=== PATIENT | female | born 1945 | race Caucasian/White ===

== ENCOUNTER 2016-04-17 11:04 | Emergency (ER) | payer OTHER ==
[~2016-04-17] VITALS: Ht 157.5 cm; Wt 68.0 kg
[2016-04-17 11:14] VITALS: BP 114/81; PULSE 90; RESP 16; TEMP 96.8; O2SAT 94
--- NOTE | 2016-04-17 11:23 | NUR ---
Patient to ER bed 2 to gown for evaluation. Side rails up. Report given to Jesús ALEXANDER.
--- NOTE | 2016-04-17 11:38 | NUR ---
Pt states that she "feels sick", possible UTI. Feels like she has been sick with "one thing or another' since hernia surgery in November. Denies n/v. Irregular bowels.
[2016-04-17 11:40] LABS: BILIRUBIN,URINE NEGATIVE (NEGATIVE); BLOOD, URINE NEGATIVE (NEGATIVE); CLARITY/URINE CLEAR (CLEAR); COLOR,URINE YELLOW (YELLOW); GLUCOSE,URINE NEGATIVE (NEGATIVE); KETONES,URINE NEGATIVE (NEGATIVE); LEUKOCYTE ESTERASE ,URINE NEGATIVE (NEGATIVE); NITRITE, URINE POSITIVE (NEGATIVE); PROTEIN URINE NEGATIVE (NEGATIVE); UROBILINOGEN,URINE 0.2 (0.2-1.0)
--- NOTE | 2016-04-17 11:49 | NUR ---
Dr. Webber at bedside for evaluation
--- NOTE | 2016-04-17 11:55 | NUR ---
Phleb at bedside for blood draw using 2 pt identifiers.
[2016-04-17] MEDS ORDERED: PIPERACILLIN/TAZO 3.38 GM in NS 50 ML IV ONE (12:00)
[2016-04-17 12:06] LABS: BASOPHILS % (AUTO) 0.2 % (0.0-2.0); HEMATOCRIT 43.7 % (36-48); HEMOGLOBIN 14.7 g/dL (12.0-16.0); LYMPHOCYTES # (AUTO) 2.1 K/uL (1.0-5.5); LYMPHOCYTES % (AUTO) 26.9 % (20.5-51.5); MEAN CORPUSCULAR HEMOGLOBIN 31 pg (27-31); MEAN CORPUSCULAR HGB CONC 34 % (32-36); MEAN CORPUSCULAR VOLUME 92 fL (79.0-98.0); MONOCYTES # (AUTO) 0.5 K/uL (0.0-1.0); MONOCYTES % (AUTO) 6.7 % (1.7-9.3); NEUTROPHILS # (AUTO) 5.4 K/uL (1.8-7.7); NEUTROPHILS % (AUTO) 66.2 % (40.0-70.0); PLATELET COUNT (AUTO) 246 K/uL (130-430); RED BLOOD CELL COUNT(AUTO) 4.74 MIL/uL (4.2-6.2); RED CELL DISTRIBUTION WIDTH 12.8 % (9.0-15.0)
[2016-04-17 12:15] LABS: ANION GAP 6 (5-15); CALCIUM 8.5 mg/dL (8.4-11.0); CHLORIDE 105 mmol/L (98-107); CREATININE 0.58 mg/dL (0.55-1.30); GLUCOSE 127 mg/dL (70-99); POTASSIUM 3.8 mmol/L (3.5-5.1); SODIUM SERUM 137 mmol/L (136-145); UREA NITROGEN, BLOOD 7 mg/dL (8-21)
[2016-04-17 12:18] LABS: PROTHROMBIN TIME 10.5 SECS (9.5-12.5)
[2016-04-17 12:19] LABS: ALANINE AMINOTRANSFERASE 29 U/L (12-78); ALBUMIN 3.4 g/dL (3.4-4.8); ASPARTATE AMINOTRANSFERASE 15 U/L (10-37); LIPASE 188 U/L (73-393); TOTAL BILIRUBIN 0.4 mg/dL (0.0-1.0); TOTAL PROTEIN, SERUM 6.9 g/dL (6.4-8.3)
--- NOTE | 2016-04-17 12:30 | NUR ---
Off unit for CT via [facility]
--- NOTE | 2016-04-17 13:38 | NUR ---
Note olgaemiliano in EDM - 04/17/16 at 1348 by SDEDST[facility] Pt states that she "feels sick", possible UTI. Feels like she has been sick with "one thing or another' since hernia surgery in November. Denies n/v. Irregular bowels.
[2016-04-17] MEDS ORDERED: MAGNESIUM CITRATE 300 ML ORAL SOLUTION PO ONE (13:45)
[2016-04-17] MEDS ORDERED: LEVOFLOXACIN 500 MG TABLET PO ONE (13:45)
--- NOTE | 2016-04-17 13:47 | NUR ---
Dr. Webber at bedside speaking with pt regarding ED results and follow up.
[2016-04-17 14:00] VITALS: BP 151/76; PULSE 75; RESP 16; TEMP 97; O2SAT 98
--- NOTE | 2016-04-17 14:00 | NUR ---
Patient given written and verbal discharge instructions and verbalizes understanding. ER MD discussed with patient the results and treatment provided. Given copies of tests performed in ER. Patient in stable condition. ID arm band removed. Rx of pyridium, cipro given. Patient educated on pain management and to follow up with PMD. Pain Scale 1/10. Opportunity for questions provided and answered.
== END 2016-04-17 14:00 | disposition home or self-care (01) ==
LOC: SED 11:04
DX: R53.1 Weakness (principal); R30.0 Dysuria; I10 Essential (primary) hypertension
CPT/HCPCS: 36415; 71010; 80053; 81003; 83605; 83690-TC; 85025; 85610-TC; 87040-TC; 93005; 99285

== ENCOUNTER 2016-08-17 10:36 | Emergency (ER) | payer OTHER ==
[~2016-08-17] VITALS: Ht 157.5 cm; Wt 68.5 kg
[2016-08-17 10:40] VITALS: BP_SYST 120
[2016-08-17] MEDS ORDERED: PIPERACILLIN/TAZO 3.38 GM in NS 50 ML IV ONE (12:15)
[2016-08-17] MEDS ORDERED: PIPERACILLIN/TAZOBACTAM 3.375 GM/VIAL (ZOSYN) IV ONE (12:34)
[2016-08-17 12:56] LABS: BILIRUBIN,URINE NEGATIVE (NEGATIVE); BLOOD, URINE NEGATIVE (NEGATIVE); CLARITY/URINE CLEAR (CLEAR); COLOR,URINE YELLOW (YELLOW); GLUCOSE,URINE NEGATIVE (NEGATIVE); KETONES,URINE NEGATIVE (NEGATIVE); LEUKOCYTE ESTERASE ,URINE NEGATIVE (NEGATIVE); NITRITE, URINE NEGATIVE (NEGATIVE); PROTEIN URINE NEGATIVE (NEGATIVE); UROBILINOGEN,URINE 0.2 (0.2-1.0)
[2016-08-17 13:04] LABS: HEMATOCRIT 44.1 % (36-48); HEMOGLOBIN 14.7 g/dL (12.0-16.0); LYMPHOCYTES % (AUTO) 34.2 % (20.5-51.5); MEAN CORPUSCULAR HEMOGLOBIN 31 pg (27-31); MEAN CORPUSCULAR HGB CONC 33 % (32-36); MEAN CORPUSCULAR VOLUME 93 fL (79.0-98.0); MONOCYTES # (AUTO) 0.4 K/uL (0.0-1.0); MONOCYTES % (AUTO) 6.9 % (1.7-9.3); NEUTROPHILS # (AUTO) 3.5 K/uL (1.8-7.7); NEUTROPHILS % (AUTO) 58.9 % (40.0-70.0); PLATELET COUNT (AUTO) 246 K/uL (130-430); RED BLOOD CELL COUNT(AUTO) 4.74 MIL/uL (4.2-6.2); RED CELL DISTRIBUTION WIDTH 12.8 % (9.0-15.0); WHITE BLOOD COUNT (AUTO) 5.9 K/uL (4.8-10.8)
[2016-08-17 13:06] LABS: ANION GAP 7 (5-15); CALCIUM 8.6 mg/dL (8.4-11.0); CHLORIDE 102 mmol/L (98-107); CREATININE 0.55 mg/dL (0.55-1.30); GLUCOSE 165 mg/dL (70-99); POTASSIUM 3.6 mmol/L (3.5-5.1); SODIUM SERUM 134 mmol/L (136-145); UREA NITROGEN, BLOOD 6 mg/dL (8-21)
[2016-08-17 13:10] LABS: ALANINE AMINOTRANSFERASE 22 U/L (12-78); ALBUMIN 3.8 g/dL (3.4-4.8); ASPARTATE AMINOTRANSFERASE 15 U/L (10-37); LIPASE 160 U/L (73-393); TOTAL BILIRUBIN 0.3 mg/dL (0.0-1.0); TOTAL PROTEIN, SERUM 7.4 g/dL (6.4-8.3)
[2016-08-17 13:12] LABS: PROTHROMBIN TIME 10.4 SECS (9.5-12.5)
[2016-08-17 14:05] VITALS: BP_SYST 115
[2016-08-17] MEDS ORDERED: MAGNESIUM CITRATE 300 ML ORAL SOLUTION ONE (14:08)
== END 2016-08-17 14:05 | disposition home or self-care (01) ==
LOC: SED 10:36
DX: K59.00 Constipation, unspecified (principal); I10 Essential (primary) hypertension; Z90.710 Acquired absence of both cervix and uterus
CPT/HCPCS: 36415; 71010; 74176; 80053; 81003; 83605; 83690; 85025; 85610; 87040; 93005; 96365; 99285; J2543

== ENCOUNTER 2016-10-17 15:53 | Emergency (ER) | payer OTHER ==
[~2016-10-17] VITALS: Ht 157.5 cm; Wt 68.0 kg
[2016-10-17 15:59] VITALS: BP_SYST 125
[2016-10-17 16:30] LABS: BILIRUBIN,URINE NEGATIVE (NEGATIVE); BLOOD, URINE NEGATIVE (NEGATIVE); CLARITY/URINE CLEAR (CLEAR); GLUCOSE,URINE NEGATIVE (NEGATIVE); KETONES,URINE NEGATIVE (NEGATIVE); LEUKOCYTE ESTERASE ,URINE NEGATIVE (NEGATIVE); PROTEIN URINE NEGATIVE (NEGATIVE)
[2016-10-17 16:43] LABS: COLOR,URINE AMBER (YELLOW); NITRITE, URINE NEGATIVE (NEGATIVE)
[2016-10-17] MEDS ORDERED: KETOROLAC TROMETHAMINE 60 MG/2 ML VIAL IM ONE (16:45)
[2016-10-17] MEDS ORDERED: IPRATROPIUM/ALBUTEROL SULFATE 3 ML AMPUL.NEB INH ONE (17:30)
[2016-10-17 17:56] VITALS: BP_SYST 120
== END 2016-10-17 17:58 | disposition home or self-care (01) ==
LOC: SED 15:53
DX: M54.6 Pain in thoracic spine (principal); I10 Essential (primary) hypertension; Z90.710 Acquired absence of both cervix and uterus; Z87.891 Personal history of nicotine dependence
CPT/HCPCS: 74176; 81003; 94640; 96372; 99285; J1885

== ENCOUNTER 2017-01-14 12:09 | Emergency (ER) | payer OTHER ==
[~2017-01-14] VITALS: Ht 157.5 cm; Wt 69.9 kg
[2017-01-14 12:09] VITALS: BP_SYST 139
[2017-01-14] MEDS ORDERED: TETRACAINE HCL 0.5% OPHTHALMIC DROPS 15 ML OP ONE (12:10)
[2017-01-14] MEDS ORDERED: FLUORESCEIN SODIUM 1 MG OPHTHALMIC STRIP OP ONE (12:10)
--- NOTE | 2017-01-14 12:19 | NUR ---
Pt ambulated to bed 7, report endorsed to Michelle ALEXANDER
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
--- NOTE | 2017-01-14 13:05 | NUR ---
ER REGINO BARRERA at bedside examining patient.
[2017-01-14] MEDS ORDERED: HYDROcodone/ACETAMIN 5-325 MG TAB (NORCO/ VICODIN) PO ONE (13:30)
[2017-01-14] MEDS ORDERED: DIPH-TET Vacc 0.5 ML VIAL I.M. ONE (13:45)
--- NOTE | 2017-01-14 13:58 | NUR ---
MEDICATION ADMINISTERED. ALONDRA WELL. NO ADVERSE REACTIONS NOTED.
--- NOTE | 2017-01-14 14:09 | NUR ---
REGNIO BARRERA AT BEDSIDE EXAMING PT'S EYE.
[2017-01-14] MEDS ORDERED: BACITRACIN 1 GM OINT TP ONE (14:45)
[2017-01-14 14:47] VITALS: BP_SYST 135
--- NOTE | 2017-01-14 14:48 | NUR ---
Patient given written and verbal discharge instructions and verbalizes understanding. ER REBAR WORKER BRUCE discussed with patient the results and treatment provided. Patient in stable condition. ID arm band removed. Rx of NORCO, CLINDAMYCIN, ERYTHROMYCIN, given. Patient educated on pain management and to follow up with PMD. Pain Scale 0. Opportunity for questions provided and answered.
== END 2017-01-14 14:45 | disposition home or self-care (01) ==
LOC: SED 12:09
DX: S01.111A Laceration without foreign body of right eyelid and periocular area, initial encounter (principal); H05.011 Cellulitis of right orbit; R03.0 Elevated blood-pressure reading, without diagnosis of hypertension; I10 Essential (primary) hypertension; W22.8XXA Striking against or struck by other objects, initial encounter; Y93.89 Activity, other specified; Y92.89 Other specified places as the place of occurrence of the external cause; Y99.8 Other external cause status
CPT/HCPCS: 90714; 99284